=== PATIENT | male | born 1950 | race African-American/Black ===

== ENCOUNTER 2019-09-13 05:01 | Inpatient (IN) ==
--- NOTE | 2019-09-13 05:17 | Emergency Department Note ---
Impression & Plan Acute respiratory failure with hypoxia, Congestive heart failure ED Provider Note Name: BRIJESH LORD Age: 69 Sex: M Arrives Via: Ambulance Informant: Patient, EMS ED Provider: Carlos Quintana MD Chief Complaint: Shortness of breath Impression: Acute Respiratory Failure with Hypoxia Congestive heart failure Medical Decision Makin yr old male poor history arrives acute hypoxic respiratory distress from local alcohol rehab facility. Patient poor history though history of HTN, COPD, Alcoholism and reportedly leg swelling was new but mildly improved with lasix over the last week. Patient rapidly improved symptoms just with putting him on NC O2 and sats came up quickly. He is in much less distress and feeling well. No significant wheezing on initial exam though lung sounds decreased and crackles. He does have pitting edema bilateral lower legs. He is afebrile and vitals otherwise with HTN. EKG with diffuse ant/lat T wave inversions, however patient currently without chest pain (nor even much SOB with NC O2). CXR reveals bilateral patchy congestion with small effusion right fissure I suspect is new onset pulmonary edema. Given abnormal CXR I did ask nursing to wear N95, though I will note he reports negative Covid testing just a week ago. He furthermore is without cough, chills, nor fevers at this time and reports none of them over last week. In addition labs reveal elevated BNP and thus Lasix Ordered. Reviewed with hospitalist who will further evaluate. As no wheezing on exam and patient better with NC O2 I opted to avoid nebs at this time given already concerns for cardiac issue. Anemia is likely secondary to chronic alcoholism and at this point no indication for transfusion. Prior Medical Record and Triage/Nursing Notes reviewed by Me Differentials:Reactive airway disease, COVID, pneumonia, pneumothorax, COPD, CHF, infections, cardiac ischemia, pulmonary embolism, musculoskeletal, gastrointestinal, as well as other pathologies. Vital Signs: reviewed and remarkable for hypoxia, htn Interventions: NC O2, Lasix 40mg IV Labs:Reviewed and remarkable for no significant abnormalities Imaging:X ray results are stated below per my interpretation: Chest: 1 view: Bilateral congestive findings with right fissure fluid no previous for comparison EKG:Per My Interpretation: Indication SHOB: NST 89 bpm, qtc 450 diffuse anterior/lat T wave inversions. No previous for comparison Cardiac/Tele Monitoring: Cardiac Monitoring: An Order was placed for continuous cardiac monitoring. The monitor shows a rate of 80 with a normal sinus rhythm. Consults:Dr Preciado Plan: Disposition:Hospitalization. Condition: Fair Blood pressure:Normal.No Referral necessary Prescriptions:None PDMP: n/a History of Present Illness:69 / M arrives for evaluation of acute shortness of breath. Patient coming from alcohol rehab facility with history of HTN, COPD, Alcoholism and leg edema. States he was admitted to [facility] last week after admission to hospital the week earlier. Notes COVID testing negative at that time. He states he has been actually feeling well with leg swelling improving over the last few days while on lasix. This evening a few hours ago he awoke short of breath. Notes feeling lightheaded and weak. Denies chest pain, syncope, headache, seizure, abdominal pain, nausea, vomiting, nor other symptoms. No medications prior to arrival. NC O2 by EMS makes symptoms better, exertion makes symptoms worse. Notes laying flat makes worse, sitting up makes better. Denies previous episode like this. No trauma nor injury recently. Denies previous CAD, stenting and denies CHF diagnosis. ROS: See above HPI for pertinent positives & negatives. A total of 10 systems reviewed and were otherwise negative. Past Medical History:COPD, HTN, Alcoholism, Leg Edema Past Surgical History:None Family History:Mother had bleeding disorder Social History:Smoker, Alcoholism, no drugs, from [place] Home Medications:Lasix Allergies:NKDA Vitals:Blood Pressure: 161/78, Pulse 98, RR 20, T 36.8C, O2 84% on RA Physical Exam: GENERAL: Patient is unwell appearing and in moderate distress. EYES: No scleral icterus, unremarkable pupils. ENT: Mucous membranes moist, no nasal congestion. NECK: No masses appreciated, nomeningismus, trachea is midline. RESPIRATORY: Diffusely tight lung sounds with crackles, dyspnea/tachypnea, no wheezing appreciated CARDIOVASCULAR: Tachy.No murmurs, rubs, gallops appreciated. GASTROINTESTINAL: Abdomen soft, non-tender, no peritonitis.Bowel sounds positive.No masses appreciated. BACK: No midline tenderness, no CVA tenderness EXTREMITIES: Normal motion all extremities, no cyanosis, 2+ pitting edema bilateral legs NEUROLOGIC: Alert and oriented, no acute motor or sensory deficits, no focal weakness, cranial nerves grossly intact. SKIN: No rash, no jaundice, no diaphoresis. PSYCH: Appropriate GCS: 15 ED Course: Times/Reassessments: Many repeat examinations, feeling quite well on NC O2 without further Shortness of breath Carlos Quintana MD Past Med/Surg History Social History Smoking Status: Current every day smoker Do You Dip or Chew Tobacco: No; Tobacco Cessation Education Requested by Patient: No Hx Alcohol Use: Yes Hx Substance Use: No Preferred Language: Bahamian Property Economist Required: No Beliefs That Will Affect Care: None Current Living Situation: Family Other Information That Helps Us Care for You: No Feels Safe at Home: Yes Safety Concerns: Feels Safe At This Time Allergies Allergies Allergy/AdvReac Type Severity Reaction Status Date / Time No Known Allergies Allergy Unverified 09/13/19 05:31 Home Meds Home Medications Medication Instructions Recorded Confirmed bumetanide 1 mg PO DAILY PRN 09/13/19 09/13/19 calcium carbonate [Twan-Gest 800 mg PO Q6 PRN 09/13/19 09/13/19 Antacid] cyanocobalamin (vitamin B-12) 1,000 mcg PO DAILY 09/13/19 09/13/19 [Vitamin B-12] cpdhlounhwh-eyvtrrnue-ndeasoqf 1 inh INHALATION DAILY 09/13/19 09/13/19 [Trelegy Ellipta] folic acid 1 mg PO DAILY 09/13/19 09/13/19 hydroxyzine pamoate 50 mg PO TID PRN 09/13/19 09/13/19 melatonin 5 - 10 mg PO HS PRN 09/13/19 09/13/19 uktebjzfmbib-sqxz-zmwef acid 1 tab PO DAILY 09/13/19 09/13/19 [Centrum Complete] ondansetron HCl 8 mg PO TID PRN 09/13/19 09/13/19 thiamine HCl (vitamin B1) [Vitamin 100 mg PO DAILY 09/13/19 09/13/19 B-1] Results & Data (ED) Vital Signs Vital Signs - 24 hr 09/13/19 05:09 09/13/19 05:30 09/13/19 05:40 Temperature 36.8 C Temperature Source Oral Pulse Rate 104 H 102 H 94 H Pulse Rate from SpO2 Sensor 99 H 102 H 93 H Respiratory Rate 20 22 23 Respiratory Effort / Characteristics Non-Labored Spontaneous Respiratory Depth Normal Blood Pressure 161/78 H 155/83 H Blood Pressure Mean 83 118 Pulse Oximetry 97 97 96 Oxygen Delivery Method Nasal Cannula Nasal Cannula Nasal Cannula Oxygen Flow Rate 2 2 2 Sepsis New/Unexplained Change in Mental Status N/A Sepsis Action Taken by Nursing No Action Required Pulse Oximetry Post Tiitration 95 09/13/19 06:00 09/13/19 06:30 09/13/19 07:00 Temperature Temperature Source Pulse Rate 89 88 110 H Pulse Rate from SpO2 Sensor 88 92 H 110 H Respiratory Rate 19 18 16 Respiratory Effort / Characteristics Respiratory Depth Blood Pressure 176/77 H 178/87 H 163/91 H Blood Pressure Mean 109 115 127 Pulse Oximetry 97 97 97 Oxygen Delivery Method Nasal Cannula Oxygen Flow Rate 2 Sepsis New/Unexplained Change in Mental Status Sepsis Action Taken by Nursing Pulse Oximetry Post Tiitration 09/13/19 07:01 09/13/19 07:30 09/13/19 07:31 Temperature Temperature Source Pulse Rate 101 H 108 H 103 H Pulse Rate from SpO2 Sensor 101 H 108 H 103 H Respiratory Rate 22 25 H 24 Respiratory Effort / Characteristics Respiratory Depth Blood Pressure 179/105 H Blood Pressure Mean 135 Pulse Oximetry 95 93 94 Oxygen Delivery Method Oxygen Flow Rate Sepsis New/Unexplained Change in Mental Status Sepsis Action Taken by Nursing Pulse Oximetry Post Tiitration 09/13/19 08:00 09/13/19 08:01 Temperature Temperature Source Pulse Rate 93 H 96 H Pulse Rate from SpO2 Sensor 93 H 95 H Respiratory Rate 21 19 Respiratory Effort / Characteristics Respiratory Depth Blood Pressure 150/77 H Blood Pressure Mean 97 Pulse Oximetry 91 91 Oxygen Delivery Method Oxygen Flow Rate Sepsis New/Unexplained Change in Mental Status Sepsis Action Taken by Nursing Pulse Oximetry Post Tiitration Laboratory Data Result diagrams: 09/13/19 05:32 09/13/19 05:32 Lab Results 09/13/19 09/13/19 09/13/19 Range/Units 05:32 05:32 05:32 WBC 7.44 (4.8-10.8) K/uL RBC 2.47 L (4.7-6.1) M/uL Hgb 8.9 L (14.0-18.0) g/dL Hct 25.1 L (42-52) % MCV 101.6 H (80-100) fL MCH 36.0 H (25-34) pg MCHC 35.5 (32-36) g/dL RDW Std Deviation 66.1 H (36.4-46.3) fL RDW Coeff of Alisa 17.6 H (11.5-14.5) % Plt Count 260 (130-400) K/uL MPV 9.5 (7.4-10.4) fL Immature Gran % (Auto) 0.1 % Neut % (Auto) 80.1 % Lymph % (Auto) 9.7 % [place] % (Auto) 7.3 % Eos % (Auto) 2.3 % Baso % (Auto) 0.5 % Neut # (Auto) 5.96 (1.4-6.5) K/uL Lymph # (Auto) 0.72 L (1.2-3.4) K/uL [place] # (Auto) 0.54 (0.11-0.59) K/uL Eos # (Auto) 0.17 (0-0.5) K/uL Baso # (Auto) 0.04 (0-0.2) K/uL Immature Gran # (Auto) 0.01 (0.00-0.02) K/uL PT 10.8 (9.0-12.0) Seconds INR 1.0 (0.9-1.1) VBG pH (7.36-7.41) VBG pCO2 (38-50) mmHg VBG pO2 mmHg VBG HCO3 mmol/L VBG O2 Saturation % VBG Base Excess mEq/L Barometric Pressure mm/Hg Sodium (136-145) mmol/L Potassium (3.5-5.1) mmol/L Chloride (98-107) mmol/L Carbon Dioxide (21-32) mmol/L Anion Gap (3-11) BUN (7-18) mg/dl Creatinine (0.6-1.4) mg/dl Est Cr Clr Drug Dosing ml/min Est GFR ( Amer) Est GFR (Non-Af Amer) BUN/Creatinine Ratio (10-20) Glucose (70-99) mg/dl Lactate 2.5 H* (0.4-2.0) mmol/L Calcium (8.5-10.1) mg/dl Magnesium (1.8-2.4) mg/dl Total Bilirubin (0.2-1) mg/dl Direct Bilirubin (0-0.2) mg/dl AST (15-37) U/L ALT (12-78) U/L Alkaline Phosphatase (45-117) U/L Troponin I (0-0.045) ng/ml NT-Pro-B Natriuret Pep (0-900) pg/ml Total Protein (6.4-8.2) gm/dl Albumin (3.4-5.0) gm/dl Lipase (73-393) U/L Urine Color Urine Appearance (Clear) Urine pH (4.5-7.5) Ur Specific [place] (1.000-1.030) Urine Protein (Negative) Urine Glucose (UA) (Negative) Urine Ketones (Negative) Urine Blood (Negative) Urine Nitrite (Negative) Urine Bilirubin (Negative) Urine Urobilinogen (Negative) Ur Leukocyte Esterase (Negative) Urine WBC (Auto) (0-5) /hpf Urine RBC (Auto) (0-4) /hpf U Hyaline Cast (Auto) (0-5) /lpf U Epithel Cells (Auto) (0-5) /lpf Urine Bacteria (Auto) (Negative) 09/13/19 09/13/19 09/13/19 Range/Units 05:32 05:32 06:10 WBC (4.8-10.8) K/uL RBC (4.7-6.1) M/uL Hgb (14.0-18.0) g/dL Hct (42-52) % MCV (80-100) fL MCH (25-34) pg MCHC (32-36) g/dL RDW Std Deviation (36.4-46.3) fL RDW Coeff of Alisa (11.5-14.5) % Plt Count (130-400) K/uL MPV (7.4-10.4) fL Immature Gran % (Auto) % Neut % (Auto) % Lymph % (Auto) % [place] % (Auto) % Eos % (Auto) % Baso % (Auto) % Neut # (Auto) (1.4-6.5) K/uL Lymph # (Auto) (1.2-3.4) K/uL [place] # (Auto) (0.11-0.59) K/uL Eos # (Auto) (0-0.5) K/uL Baso # (Auto) (0-0.2) K/uL Immature Gran # (Auto) (0.00-0.02) K/uL PT (9.0-12.0) Seconds INR (0.9-1.1) VBG pH 7.40 (7.36-7.41) VBG pCO2 50 (38-50) mmHg VBG pO2 25 mmHg VBG HCO3 30 mmol/L VBG O2 Saturation < 60.0 % VBG Base Excess 4.5 mEq/L Barometric Pressure 732.7 mm/Hg Sodium 144 (136-145) mmol/L Potassium 3.6 (3.5-5.1) mmol/L Chloride 107 (98-107) mmol/L Carbon Dioxide 30 (21-32) mmol/L Anion Gap 7.0 (3-11) BUN 31 H (7-18) mg/dl Creatinine 1.52 H (0.6-1.4) mg/dl Est Cr Clr Drug Dosing 40.0 ml/min Est GFR ( Amer) 52.7 Est GFR (Non-Af Amer) 45.4 BUN/Creatinine Ratio 20.7 H (10-20) Glucose 80 (70-99) mg/dl Lactate (0.4-2.0) mmol/L Calcium 8.5 (8.5-10.1) mg/dl Magnesium 1.5 L (1.8-2.4) mg/dl Total Bilirubin 0.6 (0.2-1) mg/dl Direct Bilirubin 0.2 (0-0.2) mg/dl AST 136 H (15-37) U/L ALT 147 H (12-78) U/L Alkaline Phosphatase 61 (45-117) U/L Troponin I 0.041 (0-0.045) ng/ml NT-Pro-B Natriuret Pep 5160 H (0-900) pg/ml Total Protein 6.3 L (6.4-8.2) gm/dl Albumin 2.8 L (3.4-5.0) gm/dl Lipase 269 (73-393) U/L Urine Color Yellow Urine Appearance Clear (Clear) Urine pH 8.5 H (4.5-7.5) Ur Specific [place] 1.014 (1.000-1.030) Urine Protein Negative (Negative) Urine Glucose (UA) Negative (Negative) Urine Ketones Negative (Negative) Urine Blood Negative (Negative) Urine Nitrite Negative (Negative) Urine Bilirubin Negative (Negative) Urine Urobilinogen Negative (Negative) Ur Leukocyte Esterase Negative (Negative) Urine WBC (Auto) 1-5 (0-5) /hpf Urine RBC (Auto) 0-4 (0-4) /hpf U Hyaline Cast (Auto) 0 (0-5) /lpf U Epithel Cells (Auto) 5-10 H (0-5) /lpf Urine Bacteria (Auto) Negative (Negative) 09/13/19 Range/Units 07:37 WBC (4.8-10.8) K/uL RBC (4.7-6.1) M/uL Hgb (14.0-18.0) g/dL Hct (42-52) % MCV (80-100) fL MCH (25-34) pg MCHC (32-36) g/dL RDW Std Deviation (36.4-46.3) fL RDW Coeff of Alisa (11.5-14.5) % Plt Count (130-400) K/uL MPV (7.4-10.4) fL Immature Gran % (Auto) % Neut % (Auto) % Lymph % (Auto) % [place] % (Auto) % Eos % (Auto) % Baso % (Auto) % Neut # (Auto) (1.4-6.5) K/uL Lymph # (Auto) (1.2-3.4) K/uL [place] # (Auto) (0.11-0.59) K/uL Eos # (Auto) (0-0.5) K/uL Baso # (Auto) (0-0.2) K/uL Immature Gran # (Auto) (0.00-0.02) K/uL PT (9.0-12.0) Seconds INR (0.9-1.1) VBG pH (7.36-7.41) VBG pCO2 (38-50) mmHg VBG pO2 mmHg VBG HCO3 mmol/L VBG O2 Saturation % VBG Base Excess mEq/L Barometric Pressure mm/Hg Sodium (136-145) mmol/L Potassium (3.5-5.1) mmol/L Chloride (98-107) mmol/L Carbon Dioxide (21-32) mmol/L Anion Gap (3-11) BUN (7-18) mg/dl Creatinine (0.6-1.4) mg/dl Est Cr Clr Drug Dosing ml/min Est GFR ( Amer) Est GFR (Non-Af Amer) BUN/Creatinine Ratio (10-20) Glucose (70-99) mg/dl Lactate 1.4 (0.4-2.0) mmol/L Calcium (8.5-10.1) mg/dl Magnesium (1.8-2.4) mg/dl Total Bilirubin (0.2-1) mg/dl Direct Bilirubin (0-0.2) mg/dl AST (15-37) U/L ALT (12-78) U/L Alkaline Phosphatase (45-117) U/L Troponin I (0-0.045) ng/ml NT-Pro-B Natriuret Pep (0-900) pg/ml Total Protein (6.4-8.2) gm/dl Albumin (3.4-5.0) gm/dl Lipase (73-393) U/L Urine Color Urine Appearance (Clear) Urine pH (4.5-7.5) Ur Specific [place] (1.000-1.030) Urine Protein (Negative) Urine Glucose (UA) (Negative) Urine Ketones (Negative) Urine Blood (Negative) Urine Nitrite (Negative) Urine Bilirubin (Negative) Urine Urobilinogen (Negative) Ur Leukocyte Esterase (Negative) Urine WBC (Auto) (0-5) /hpf Urine RBC (Auto) (0-4) /hpf U Hyaline Cast (Auto) (0-5) /lpf U Epithel Cells (Auto) (0-5) /lpf Urine Bacteria (Auto) (Negative) Administered Medications Acetaminophen (Tylenol) 650 mg PO Q4H PRN PRN Reason: Pain or Fever Stop: 10/13/19 09:42 Last Admin: 09/13/19 22:12 Dose: 650 mg Documented by: [id number] Albuterol (Duoneb) 3 ml NEB QIDR [facility] Stop: 10/13/19 10:59 Last Admin: 09/13/19 19:52 Dose: 3 ml Documented by: [id number] Admin: 09/13/19 15:44 Dose: 3 ml Documented by: [id number] Admin: 09/13/19 11:21 Dose: 3 ml Documented by: [id number] Aspirin (Ecotrin Ectab) 81 mg PO [place] Stop: 10/13/19 09:42 Last Admin: 09/13/19 12:00 Dose: 81 mg Documented by: [id number] Cyanocobalamin (Vitamin B-12) 1,000 mcg PO DAILY [facility] Stop: 10/13/19 09:42 Last Admin: 09/13/19 12:00 Dose: 1,000 mcg Documented by: [id number] Enoxaparin Sodium (Lovenox) 40 mg SQ Q24H [facility] Stop: 10/13/19 09:59 Last Admin: 09/13/19 11:59 Dose: 40 mg Documented by: [id number] Fluticasone Furoate (Arnuity Ellipta 100mcg) 1 puffs INH DAILY [facility] Stop: 10/13/19 09:33 Last Admin: 09/13/19 12:01 Dose: 1 puffs Documented by: [id number] Folic Acid (Folvite) 1 mg PO DAILY [facility] Stop: 10/13/19 09:42 Last Admin: 09/13/19 12:00 Dose: 1 mg Documented by: [id number] Potassium Chloride/Sodium Chloride (Normal Saline W/20 Meq Kcl) 20 meq in 1,000 mls @ 100 mls/hr IV .Q10H [facility] Stop: 10/13/19 09:59 Last Admin: 09/13/19 22:11 Dose: 100 mls/hr Documented by: [id number] Infusion: 09/13/19 22:01 Dose: 100 mls/hr Documented by: [id number] Admin: 09/13/19 12:01 Dose: 100 mls/hr Documented by: [id number] Nicotine (Nicoderm Cq) 21 mg TD QAM [facility] Stop: 10/13/19 16:29 Last Admin: 09/13/19 17:04 Dose: 21 mg Documented by: [id number] Nicotine Polacrilex (Nicorette 2mg) 1 piece MT PRN PRN PRN Reason: tobacco withdrawal Stop: 10/13/19 16:09 Last Admin: 09/13/19 20:39 Dose: 1 piece Documented by: [id number] Admin: 09/13/19 17:04 Dose: 1 piece Documented by: [id number] Thiamine HCl (Vitamin B-1) 100 mg PO DAILY [facility] Stop: 10/13/19 09:42 Last Admin: 09/13/19 12:00 Dose: 100 mg Documented by: [id number] Umeclidinium/Vilanterol (Anoro Ellipta 62.5/25 Mcg Inh) 1 puffs INH DAILY [facility] Stop: 10/13/19 09:42 Last Admin: 09/13/19 12:01 Dose: 1 puffs Documented by: [id number] Discontinued Medications Aspirin (Aspirin Chew) 324 mg PO NOW STA Stop: 09/13/19 06:53 Last Admin: 09/13/19 06:56 Dose: 324 mg Documented by: [id number] Furosemide (Lasix) 40 mg IV NOW STA Stop: 09/13/19 06:32 Last Admin: 09/13/19 06:47 Dose: 40 mg Documented by: [id number] Magnesium Sulfate/Dextrose (Magnesium Sulfate / D5w) 1 gm in 100 mls @ 50 mls/ hr IV Q2H [facility] Stop: 09/13/19 13:59 Last Infusion: 09/13/19 16:04 Dose: 0 mls/hr Documented by: [id number] Admin: 09/13/19 13:56 Dose: 50 mls/hr Documented by: [id number] Infusion: 09/13/19 13:56 Dose: 50 mls/hr Documented by: [id number] Admin: 09/13/19 12:01 Dose: 50 mls/hr Documented by: [id number] Discharge Plan Visit Data *Final* Discharge Date/Time: 09/13/19 09:06 Chief Complaint: Shortness of Breath/Dyspnea ED Provider: Carlos Quintana Discharge Problem: Acute respiratory failure with hypoxia, Congestive heart failure Patient Disposition: Admitted As Inpatient Discharge Instructions Interventions: ED Discharge Assessment Last Done: 09/13/19 09:06 Discharge Problem: Congestive heart failure Qualifiers: Heart failure type: systolic Heart failure chronicity: acute Qualified Code(s): I50.21 - Acute systolic (congestive) heart failure
[2019-09-13 05:42] LABS: Basophils # (auto) 0.04 K/uL (0-0.2); Basophils % (auto) 0.5 %; Eosinophils # (auto) 0.17 K/uL (0-0.5); Eosinophils % (auto) 2.3 %; Hematocrit (blood only) 25.1 % (42-52); Hemoglobin 8.9 g/dL (14.0-18.0); Immature Granulocytes # (auto) 0.01 K/uL (0.00-0.02); Immature Granulocytes % (auto) 0.1 %; Lymphocytes # (auto) 0.72 K/uL (1.2-3.4); Lymphocytes % (auto) 9.7 %; Mean Corpuscular Hgb Conc 35.5 g/dL (32-36); Mean Corpuscular Volume 101.6 fL (80-100); Mean Platelet Volume 9.5 fL (7.4-10.4); Monocytes # (auto) 0.54 K/uL (0.11-0.59); Monocytes % (auto) 7.3 %; Neutrophils # (auto) 5.96 K/uL (1.4-6.5); Neutrophils % (auto) 80.1 %; Platelet Count 260 K/uL (130-400); RDW Coefficient of Variation 17.6 % (11.5-14.5); RDW Standard Deviation 66.1 fL (36.4-46.3); Red Blood Count 2.47 M/uL (4.7-6.1); White Blood Count 7.44 K/uL (4.8-10.8)
[2019-09-13 05:50] LABS: Base Excess VBG 4.5 mEq/L; HCO3 VBG 30 mmol/L; PCO2 VBG 50 mmHg (38-50); PO2 VBG 25 mmHg
[2019-09-13 05:53] LABS: Prothrombin Time 10.8 Seconds (9.0-12.0)
[2019-09-13 05:57] LABS: Oxygen Saturation VBG < 60.0 %
[2019-09-13 06:00] LABS: Albumin Level 2.8 gm/dl (3.4-5.0); BUN Creatinine Ratio 20.7 (10-20); Bilirubin Direct 0.2 mg/dl (0-0.2); Calcium 8.5 mg/dl (8.5-10.1); Est GFR (African American) 52.7; Est GFR (Non-African American) 45.4; Magnesium 1.5 mg/dl (1.8-2.4); Potassium 3.6 mmol/L (3.5-5.1)
[2019-09-13 06:05] LABS: Bilirubin,Total 0.6 mg/dl (0.2-1); Total Protein 6.3 gm/dl (6.4-8.2); Troponin I 0.041 ng/ml (0-0.045)
[2019-09-13] MEDS ORDERED: FUROSEMIDE 40 MG/4 ML VIAL IV STA (06:31)
[2019-09-13 06:38] LABS: Appearance Urine Clear (Clear); Bacteria Urine Automated Negative (Negative); Bilirubin Urine Negative (Negative); Blood Urine Negative (Negative); Cast Urine Automated 0 /lpf (0-5); Color Urine Yellow; Glucose Urine UA Negative (Negative); Ketones Urine Negative (Negative); Leukocyte Esterase Urine Negative (Negative); Nitrite Urine Negative (Negative); RBC Urine Automated 0-4 /hpf (0-4); Specific Gravity Urine 1.014 (1.000-1.030); Urobilinogen Urine Negative (Negative); pH Urine 8.5 (4.5-7.5)
[2019-09-13 06:52] LABS: Protein Urine Negative (Negative); Sulfosalicylic Acid Urine Negative (Negative)
[2019-09-13] MEDS ORDERED: ASPIRIN 81 MG CHEW PO STA (06:52)
--- NOTE | 2019-09-13 07:55 | History & Physical Report ---
Date of Service September 13, 2019 Assessment & Plan (1) Acute respiratory failure with hypoxia: Considerations are this is from heart failure superimposed on baseline COPD. Patient did remedy nicely with supplemental oxygen and diuresis with Lasix. We have no records and he has no preceding history of heart failure subsequently the patient will be ruled out with serial troponins and echocardiogram will be performed be diuresing with Lasix 40 twice daily. Consideration for ischemic work-up will be undertaken once we have the results of his initial intake (2) Abnormal chest x-ray: Patient appears to have COPD changes and heart failure. He does have a history of smoking. He was counseled on smoking cessation and given nicotine patch. He will continue on home inhaled medications (3) Macrocytic anemia: Patient is macrocytic anemia the patient will have folate and vitamin B checked he is alcoholic and this would be consistent with his history his hemoglobin is in the 9 g range no need for transfusion at this point time (4) Chronic kidney disease, stage III (moderate): Appropriately dose medications and care with diuresis with Lasix (5) Transaminitis: Likely from alcohol abuse will continue to trend (6) Hypomagnesemia: Replete (7) DVT prophylaxis: Lovenox will be used History of Present Illness . Primary Care Provider: Elliot Henderson 69 yr old male with acute hypoxic respiratory failure from a local detox/ rehab facility. Patient with history of HTN, COPD, Alcoholism and leg swelling treated with lasix. Pt was easily improved with oxygen. EKG with diffuse ant/lat T wave inversions, however patient without chest pain (nor even much SOB with NC O2). CXR reveals bilateral patchy congestion with small effusion right fissure consistent with pulmonary edema. PT reports negative Covid testing just a week ago. Patient states he was admitted to the hospital in the [place] area was released to home once again returned to drinking was urged by his family to get some rehab services where then he presented to [facility] Initial EKG while hypoxic showed some T wave inversions laterally but marked LVH so far patient said negative troponin x2 denied any recent chest pain with his hypoxia . Allergies Allergy/AdvReac Type Severity Reaction Status Date / Time No Known Allergies Allergy Unverified 09/13/19 05:31 Home Medications Home Medications Medication Instructions Recorded Confirmed Type bumetanide 1 mg PO DAILY PRN 09/13/19 09/13/19 History calcium carbonate [Twan-Gest 800 mg PO Q6 PRN 09/13/19 09/13/19 History Antacid] cyanocobalamin (vitamin B-12) 1,000 mcg PO DAILY 09/13/19 09/13/19 History [Vitamin B-12] dalaongfhqq-mmmttniaj-jgbeibwk 1 inh INHALATION DAILY 09/13/19 09/13/19 History [Trelegy Ellipta] folic acid 1 mg PO DAILY 09/13/19 09/13/19 History hydroxyzine pamoate 50 mg PO TID PRN 09/13/19 09/13/19 History melatonin 5 - 10 mg PO HS PRN 09/13/19 09/13/19 History mavofiycsccz-idsi-vqasp acid 1 tab PO DAILY 09/13/19 09/13/19 History [Centrum Complete] ondansetron HCl 8 mg PO TID PRN 09/13/19 09/13/19 History thiamine HCl (vitamin B1) [Vitamin 100 mg PO DAILY 09/13/19 09/13/19 History B-1] Past Med/Surg History Social History Smoking Status: Current every day smoker Do You Dip or Chew Tobacco: No; Tobacco Cessation Education Requested by Patient: No Hx Alcohol Use: Yes Hx Substance Use: No Preferred Language: Portuguese Signal Worker Required: No Beliefs That Will Affect Care: None Current Living Situation: Family Other Information That Helps Us Care for You: No Feels Safe at Home: Yes Safety Concerns: Feels Safe At This Time Review of Systems Review of Systems: Mild distress and fatigue no headache, blurry or double vision no speech or swallowing issues no chest pain, pressure or palpitations no current shortness of breath, cough or wheezes patient does remember being short of breath but cannot give an episode of chronicity to this by his history no abdominal pain, nausea or vomiting, diarrhea or constipation no dysuria, hematuria or frequency no focal joint pain or swelling no back pain, CVA tenderness or radicular pain no bruising, bleeding or rashes no focal signs of weakness or numbness or altered sensation no complaints or anxiety or depression. Physical Exam Physical Exam: The patient appeared well nourished and normally developed. Vital signs as documented. Head exam is normocephalic atraumatic no scleral icterus Neck is without JVD, thyromegaly, or carotid bruits. Lungs are clear to auscultation, poor air movement and prolonged expiratory phase have me concerned for baseline COPD Cardiac exam, Rhythm is regular.. No murmurs, rubs or gallops. Abdominal exam reveals normal bowel sounds, soft non tender, no masses Extremities are nonedematous and both pedal pulses are normal. Neurologic exam is alert and oriented, no focal loss of strength or sensation Skin is without bruises or rashes Psychologically is without concerns for anxiety or depression Results & Data Results & Data ([facility]) Vital Signs (Past 12 Hours) Vital Signs Temp Pulse Resp BP Pulse Ox 09/13/19 07:31 103 H 24 94 09/13/19 07:30 108 H 25 H 179/105 H 93 09/13/19 07:01 101 H 22 95 09/13/19 07:00 110 H 16 163/91 H 97 09/13/19 06:30 88 18 178/87 H 97 09/13/19 06:00 89 19 176/77 H 97 09/13/19 05:40 94 H 23 96 09/13/19 05:30 102 H 22 155/83 H 97 09/13/19 05:09 98.2 F 104 H 20 161/78 H 97 EKG shows sinus rhythm with LVH voltage with T wave inversions laterally no old ones to compare to Chest x-ray is congestive failure with interstitial pulmonary edema PG Care Time/CCT Total # of Minutes Spent Total Time Spent with Patient: Total time spent is greater than 50% in coordination of care (as documented) at patient's floor/unit and/or counseling patient: Coding Level of Care Code 60599 Initial Inpt Care Lvl 3 Diagnoses Acute respiratory failure with hypoxia J96.01 Abnormal chest x-ray R93.89 Macrocytic anemia D53.9 Chronic kidney disease, stage III (moderate) N18.3 Transaminitis R74.0 Hypomagnesemia E83.42 DVT prophylaxis Z29.9
--- NOTE | 2019-09-13 07:59 | XRay Report ---
XR chest 1V portable CLINICAL HISTORY: Shortness of breath COMPARISON STUDY: No previous studies for comparison. FINDINGS: The heart is borderline enlarged. There is radiographic evidence of congestive failure with interstitial edema. There is no lobar consolidation. Trace pleural effusions are suspected IMPRESSION: Congestive failure with interstitial pulmonary edema ACT 112: Negative or not required by law. Electronically signed by: Barrington Brown M.D. 09/13/2019 7:58 AM
[2019-09-13] MEDS ORDERED: ONDANSETRON INJ 2 MG/ML 2 ML VIAL IV PRN (09:43)
[2019-09-13] MEDS ORDERED: POLYETHYLENE (MIRALAX) 17 GM PACK PO PRN (09:43)
[2019-09-13] MEDS ORDERED: ACETAMINOPHEN 325 MG TAB PO PRN (09:43)
[2019-09-13] MEDS: ALBUT/IPRATROP 3MG/0.5MG NEB 3 ML VIAL NEB SCH ×3 (11:21→19:52)
[2019-09-13] MEDS: ENOXAPARIN INJ 40 MG/0.4 ML SYR SQ SCH (11:59)
[2019-09-13] MEDS: FOLIC ACID 1 MG TAB PO SCH (12:00)
[2019-09-13] MEDS: CYANOCOBALAMIN 500 MCG TABLET (VITAMIN B-12) PO SCH (12:00)
[2019-09-13] MEDS: THIAMINE HCL 100 MG TAB PO SCH (12:00)
[2019-09-13] MEDS: ASPIRIN 81 MG ECTAB PO SCH (12:00)
[2019-09-13] MEDS: MAGNESIUM SULFATE / D5W 1 GM/100 ML BAG IV SCH ×2 (12:01→13:56)
[2019-09-13] MEDS: NSS + 20MEQ KCL 20 MEQ/1,000 ML BAG IV SCH ×2 (12:01→22:11)
[2019-09-13] MEDS: FLUTICASONE FUROATE 100MCG 14 PUFFS/INHALER INH SCH (12:01)
[2019-09-13] MEDS: UMECLIDINIUM/VILANTEROL 62.5/25MCG 7 PUFFS/INHALER INH SCH (12:01)
--- NOTE | 2019-09-13 14:42 | XCELERA ---
[id number]
[2019-09-13] MEDS: NICOTINE 21 MG/24 HR TDSY TD SCH (17:04)
[2019-09-13] MEDS: NICOTINE POLACRILEX 2 MG GUM MT PRN ×2 (17:04→20:39)
--- NOTE | 2019-09-13 17:50 | Electrocardiogram Report ---
Test Reason : Blood Pressure : / mmHG Vent. Rate : 089 BPM Atrial Rate : 089 BPM P-R Int : 128 ms QRS Dur : 080 ms QT Int : 370 ms P-R-T Axes : 056 026 171 degrees QTc Int : 450 ms Normal sinus rhythm Moderate voltage criteria for LVH, may be normal variant Marked T wave abnormality consider anterolateral ischemia Abnormal ECG No previous ECGs available Confirmed by Vladislav Fernandez ([id number]) on 09/13/2019 5:49:44 PM Referred By: REFERRED SELF Confirmed By:Stepan Fernandez
[2019-09-14] MEDS: ALBUT/IPRATROP 3MG/0.5MG NEB 3 ML VIAL NEB SCH ×2 (07:18→11:11)
[2019-09-14 07:38] LABS: Albumin Level 2.2 gm/dl (3.4-5.0); Bilirubin Direct 0.2 mg/dl (0-0.2); Calcium 7.7 mg/dl (8.5-10.1); Est GFR (African American) 60.2; Potassium 3.9 mmol/L (3.5-5.1)
[2019-09-14 07:49] LABS: Bilirubin,Total 0.6 mg/dl (0.2-1); Thyroid Stimulating Hormone 0.981 uIu/ml (0.300-4.500); Total Protein 5.5 gm/dl (6.4-8.2)
[2019-09-14] MEDS: NSS + 20MEQ KCL 20 MEQ/1,000 ML BAG IV SCH (07:54)
[2019-09-14] MEDS: ENOXAPARIN INJ 40 MG/0.4 ML SYR SQ SCH (07:55)
[2019-09-14] MEDS: FLUTICASONE FUROATE 100MCG 14 PUFFS/INHALER INH SCH (07:55)
[2019-09-14] MEDS: UMECLIDINIUM/VILANTEROL 62.5/25MCG 7 PUFFS/INHALER INH SCH (07:55)
[2019-09-14] MEDS: CYANOCOBALAMIN 500 MCG TABLET (VITAMIN B-12) PO SCH (07:55)
[2019-09-14] MEDS: NICOTINE 21 MG/24 HR TDSY TD SCH (07:56)
[2019-09-14] MEDS: ASPIRIN 81 MG ECTAB PO SCH (07:56)
[2019-09-14] MEDS: FOLIC ACID 1 MG TAB PO SCH (07:56)
[2019-09-14] MEDS: THIAMINE HCL 100 MG TAB PO SCH (07:56)
[2019-09-14 08:48] LABS: Folate (Folic Acid) 18.79 ng/ml (>5.38)
[2019-09-14] MEDS ORDERED: FUROSEMIDE 40 MG in SYRINGE 0 ML IV SCH (09:00)
--- NOTE | 2019-09-14 10:25 | Discharge Summary ---
Date of Service September 14, 2019 Admission HPI Per Admitting Provider 69 yr old male with acute hypoxic respiratory failure from a local detox/ rehab facility. Patient with history of HTN, COPD, Alcoholism and leg swelling treated with lasix. Pt was easily improved with oxygen. EKG with diffuse ant/lat T wave inversions, however patient without chest pain (nor even much SOB with NC O2). CXR reveals bilateral patchy congestion with small effusion right fissure consistent with pulmonary edema. PT reports negative Covid testing just a week ago. Patient states he was admitted to the hospital in the [place] area was released to home once again returned to drinking was urged by his family to get some rehab services where then he presented to [facility] Initial EKG while hypoxic showed some T wave inversions laterally but marked LVH so far patient said negative troponin x2 denied any recent chest pain with his hypoxia . Principal Diagnosis Acute pulmonary edema Discharge Exam The patient appeared well nourished and normally developed. Vital signs as documented. Head exam is normocephalic atraumatic no scleral icterus Neck is without JVD, thyromegaly, or carotid bruits. Lungs are clear to auscultation Cardiac exam, Rhythm is regular.. No murmurs, rubs or gallops. Abdominal exam reveals normal bowel sounds, soft non tender, no masses Extremities are nonedematous and both pedal pulses are normal. Neurologic exam is alert and oriented, no focal loss of strength or sensation Skin is without bruises or rashes Psychologically is without concerns for anxiety or depression Discharge Data Allergies Allergy/AdvReac Type Severity Reaction Status Date / Time No Known Allergies Allergy Unverified 09/13/19 05:31 Consultations 09/13/19 07:19 ED Decision to Admit Stat Hospital Course (1) Acute respiratory failure with hypoxia: Acute Pulmonary edema. Considerations are this is from heart failure superimposed on baseline COPD. Patient did remedy nicely with supplemental oxygen and diuresis with Lasix. We have no records and he has no preceding history of heart failure subsequently the patient will be ruled out with serial troponins and echocardiogram will be performed be diuresing with Lasix 40 twice daily. Patient responded to diuretics. He refused further ischemic work up and asked to be discharge. will recommend followup with PCP. This was explained to patient who showed understanding. (2) Abnormal chest x-ray: Patient appears to have COPD changes and heart failure. He does have a history of smoking. He was counseled on smoking cessation and given nicotine patch. He will continue on home inhaled medications (3) Macrocytic anemia: Patient is macrocytic anemia the patient will have folate and vitamin B checked he is alcoholic and this would be consistent with his history his hemoglobin is in the 9 g range no need for transfusion at this point time (4) Chronic kidney disease, stage III (moderate): Appropriately dose medications and care with diuresis with Lasix (5) Transaminitis: Likely from alcohol abuse (6) Hypomagnesemia: Replete (7) DVT prophylaxis: Lovenox will be used Total Time Total Time Spent Total Time Spent (In Minutes): 35 Discharge Plan Discharge Items Patient Disposition: Drug & Alcohol Rehab Reason For Visit: ACUTE RESPIRATORY FAILURE WITH HYPOXIA Discharge Diagnosis: Acute respiratory failure with hypoxia Activity: Resume your previous activity Non-emergency contact: Primary Care Provider Call non-emergency contact if: you have any medication questions Follow-up/Referrals: Elliot Henderson [Primary Care Provider] - (please call and set up a follow up appt with your PCP) Diet: Regular Addtl Attending Provider Instructions: You have been hospitalized for an acute medical problem. During your stay at [facility], we have made an effort to correct the problem that brought you to the hospital while keeping you as comfortable as possible. Medications were used to bring your condition under control and your discharge instructions will include directions for any medications you should take after leaving the hospital. Please make sure you see your Primary Care Provider as part of your follow up plan. Pending Studies at Discharge: No Stand-Alone Forms: My [facility] Skilled Items Patient informed of condition?: No DNR: No Discharge Level of Care: Other Communicable Disease: No Discharge Prognosis: Stable Lines: None Urinary Catheter: No Medications and DC Order Prescriptions: New aspirin 81 mg Tablet,Delayed Release (Dr/Ec) 81 mg PO QAM Qty: 30 RF: 0 Continued cyanocobalamin (vitamin B-12) [Vitamin B-12] 1,000 mcg Tablet 1,000 mcg PO DAILY RF: 0 thiamine HCl (vitamin B1) [Vitamin B-1] 100 mg Tablet 100 mg PO DAILY RF: 0 folic acid 1 mg tablet 1 mg PO DAILY RF: 0 ondansetron HCl 8 mg Tablet 8 mg PO TID PRN (Reason: Nausea) RF: 0 hydroxyzine pamoate 50 mg Capsule 50 mg PO TID PRN (Reason: Anxiety) RF: 0 calcium carbonate [Twan-Gest Antacid] 200 mg calcium (500 mg) Tablet,Chewable 800 mg PO Q6 PRN (Reason: Dyspepsia) RF: 0 bumetanide 1 mg tablet 1 mg PO DAILY PRN (Reason: Edema) RF: 0 melatonin 5 mg Tablet 5 - 10 mg PO HS PRN (Reason: Sleep) RF: 0 Centrum Complete 18-400 mg-mcg Tablet 1 tab PO DAILY RF: 0 Trelegy Ellipta 100-62.5-25 mcg Blister With Device 1 inh INHALATION DAILY RF: 0 Discharge Orders: Discharge Order (Routine); Ordered 09/14/19 Ordered By: Tod Harrison Admission Data Admit Date/Time: 09/13/19 08:09 Attending Provider: Tod Harrison Admit Provider: Marcelino Preciado Primary Care Provider: Elliot Henderson Other Providers: Marcelino Preciado [place] Date/Time DO NOT enter until pt leaves facility: 09/14/19 12:06 Coding Level of Care Code D/C Day Management >30 mins Diagnoses Acute respiratory failure with hypoxia J96.01 Abnormal chest x-ray R93.89 Macrocytic anemia D53.9 Chronic kidney disease, stage III (moderate) N18.3 Transaminitis R74.0 Hypomagnesemia E83.42 DVT prophylaxis Z29.9 Time Spent (min) 35
--- NOTE | 2019-09-14 11:28 | XRay Report ---
XR chest 1V portable HISTORY: 69 years-old Male chf acute shortness of breath with congestive heart failure COMPARISON: Chest radiograph 09/13/2019 TECHNIQUE: Portable AP view of the chest FINDINGS: Cardiac silhouette is enlarged. Bony vascular congestion with persistent slightly decreased reticular opacities. No pneumothorax. Trace pleural effusions with mild bibasilar opacities favoring probable atelectasis. Calcific plaque of the thoracic arch. Degenerative changes of the shoulders and spine. IMPRESSION: 1. Cardiomegaly with slightly decreased pulmonary edema. 2. Trace pleural effusions with probable right basilar atelectasis. ACT 112: Negative or not required by law. The above report was generated using voice recognition software. It may contain grammatical, syntax o r spelling errors. Electronically signed by: Flavio Mauro M.D. 09/14/2019 11:26 AM
== END 2019-09-14 12:06 | disposition alcohol treatment (31) | DRG 189 ==
LOC: ED 05:01 → SUATTDRO 08:09 → 2N 08:09